=== PATIENT | female | born 1945 | race Caucasian/White ===

== ENCOUNTER 2017-12-16 12:15 | Outpatient (CLI) | payer MEDICARE, OTHER ==
--- NOTE | 2017-12-16 15:51 | MRI ---
MRI LUMBAR SPINE WITHOUT CONTRAST: 12/16/17 INDICATION: History of low back pain, left sided pain has worsened. COMPARISON: Prior exam dated 02/06/15. FINDINGS: The conus is seen to terminate at approximately L1. Advanced degenerative disease at L1-2, stable. Gr diana I anterolisthesis of L4 on L5 is stable. the visualized retroperitoneum and paravertebral soft ti ssues appear within normal limits. At the L4-5 level, there is severe bilateral facet joint degenerative change. The loss of disc space height in addition to facet hypertrophy induce stable mild left neural foraminal narrowing. At L4-5, there is facet hypertrophy with broad based disc osteophyte complex inducing mild central ca nal narrowing with mild bilateral neural foraminal narrowing which is stable. At L3-4, there is advanced left and mild right facet joint degenerative change and broad based bulge inducing mild bilateral neural foraminal narrowing, left greater than right which is stable to the pr ior exam. At L2-3, there is facet joint degenerative change with broad based bulge with mild bilateral neural f oraminal narrowing which is stable. At L1-2, there is a broad based bulge with facet joint degenerative change inducing mild bilateral ne ural foraminal narrowing which is stable. At T12-L1, there is no appreciable central canal or neural foraminal narrowing. IMPRESSION: Stable multilevel spondylosis of the lumbar spine with multilevel mild neural foraminal narrowing as detailed above. POS: [facility]
== END 2017-12-16 12:16 | disposition home or self-care (01) ==
LOC: SCSMRI 12:15
PROVIDERS: ATTEND Specialist
DX: M99.23 Subluxation stenosis of neural canal of lumbar region (principal); M47.896 Other spondylosis, lumbar region; M99.83 Other biomechanical lesions of lumbar region
CPT/HCPCS: 72148

== ENCOUNTER 2017-12-25 09:09 | Outpatient (CLI) | payer MEDICARE, OTHER ==
--- NOTE | 2017-12-25 11:09 | RAD ---
LUMBAR SPINE 4 VIEWS: HISTORY: Back pain. FINDINGS: On the AP projection, there is a slight curvature to the left with apex at L1-2. On the lateral view , the lumbar vertebrae maintain height. There is a grade I spondylolisthesis at L4-5 with mild disk narrowing seen at all levels of the lumbar spine. Facet hypertrophy is prominent at L3-4, L4-5, and L5-S1. The degree of listhesis at L4-5 does not appear to significantly changed with flexion or exte nsion. There are mild degenerative osteophytes at all levels of the lumbar spine. IMPRESSION: Mild to moderate degenerative changes of the lumbar spine with spondylolisthesis at L4-5 as described above. POS: [facility]
== END 2017-12-25 09:10 | disposition home or self-care (01) ==
LOC: SCSRAD 09:09
PROVIDERS: ATTEND Specialist
DX: M43.16 Spondylolisthesis, lumbar region (principal); M47.896 Other spondylosis, lumbar region
CPT/HCPCS: 72120

== ENCOUNTER 2018-01-22 10:14 | Outpatient (CLI) | payer MEDICARE, OTHER ==
--- NOTE | 2018-01-22 11:29 | RAD ---
PA AND LATERAL CHEST: Date: 01/22/18 HISTORY: Cough, bronchitis. COMPARISON: 09/28/13. FINDINGS: The lung [place] appear clear. No infiltrate identified. No evidence of effusion. Heart and mediastinu m unremarkable. Osseous structures unremarkable. IMPRESSION: No evidence of infiltrate. POS: [facility]
== END 2018-01-22 10:15 | disposition home or self-care (01) ==
LOC: SCSRAD 10:14
PROVIDERS: ATTEND Nurse Practitioner Family
DX: J40 Bronchitis, not specified as acute or chronic (principal)
CPT/HCPCS: 71046

== ENCOUNTER 2018-02-04 11:21 | Outpatient (CLI) | payer MEDICARE, OTHER | END 2018-02-04 11:22 | disposition home or self-care (01) | LOC: BICMAMMO 11:21 | PROVIDERS: ATTEND Family Medicine | DX: Z12.31 Encounter for screening mammogram for malignant neoplasm of breast (principal) | CPT/HCPCS: 77063; 77067 ==

== ENCOUNTER 2018-03-26 09:28 | Outpatient (CLI) | payer MEDICARE, OTHER ==
[2018-03-26 10:42] LABS: Hemoglobin 12.8 g/dL (12.0-16.0); Mean Corpuscular HGB CONC 33.3 g/dL (32.0-36.0); Mean Corpuscular Hemoglobin 29.5 pg (27.0-31.0); Mean Corpuscular Volume 88.6 fL (78.0-98.0); Mean Platelet Volume 9.5 fL (7.4-10.4); Platelet Count 152 thou/uL (130-400); RBC Distribution Width 12.3 % (11.5-14.5); Red Blood Cell (RBC) Count 4.33 mill/uL (4.20-5.40); White Blood Cell (WBC) Count 4.5 thou/uL (4.8-10.8)
[2018-03-26 10:50] LABS: INR-International Normal Ratio 0.9; PTT 26.8 SEC (22.9-36.1); Prothrombin Time 12.5 SEC (12.0-14.7)
[2018-03-26 11:06] LABS: Anion Gap 12 mmol/L (10-20); BUN (Urea Nitrogen) 19 mg/dL (9.8-20.1); Calc. Creatinine Clearance 0 mL/min (70-130); Calcium 9.5 mg/dL (7.8-10.44); Carbon Dioxide 28 mmol/L (23-31); Chloride 102 mmol/L (98-107); Estimated GFR-MDRD Greater than 90; Glucose 101 mg/dL (83-110); Sodium 138 mmol/L (136-145)
== END 2018-03-26 09:29 | disposition home or self-care (01) ==
LOC: LABBT 09:28
PROVIDERS: ATTEND Surgery
DX: Z01.812 Encounter for preprocedural laboratory examination (principal); M54.16 Radiculopathy, lumbar region; M43.16 Spondylolisthesis, lumbar region
CPT/HCPCS: 80048; 85027; 85610; 85730

== ENCOUNTER 2018-04-01 07:57 | Day surgery (SDC) | payer MEDICARE, OTHER ==
[2018-03-26 09:51] VITALS: BMI 35.2
[2018-04-01] MEDS ORDERED: CEFAZOLIN/Water 2 GM/20 ML SYRINGE ONE (08:50)
[2018-04-01] MEDS ORDERED: Fentanyl 100 MCG/2 ML VIAL ONE ×3 (10:25→13:36)
[2018-04-01] MEDS ORDERED: Sodium Chloride 0.9% 10 ML ONE (10:41)
[2018-04-01] MEDS ORDERED: Thrombin 5000 UNITS/5 ML VIAL ONE (10:41)
[2018-04-01] MEDS ORDERED: Bacitracin Zinc Ointment 30 gm TUBE ONE (12:17)
[2018-04-01] MEDS ORDERED: Promethazine HCl 25 MG/ML VIAL IM PRN (13:08)
[2018-04-01] MEDS ORDERED: Mag-Al 1200 mg/1200 mg/30 ML UDCUP PO PRN (13:08)
[2018-04-01] MEDS ORDERED: Milk Of Magnesia 30 ML UDCUP PO PRN (13:08)
[2018-04-01] MEDS ORDERED: traMADol HCl 50 MG TAB PO PRN (13:08)
[2018-04-01] MEDS ORDERED: Fleet Enema 133 ML BOT PR PRN (13:08)
[2018-04-01] MEDS ORDERED: Bisacodyl 10 MG SUPP PR PRN (13:08)
[2018-04-01] MEDS ORDERED: Acetaminophen 325 MG TAB PO PRN (13:08)
[2018-04-01] MEDS ORDERED: tiZANidine HCl 4 MG TAB PO PRN (13:08)
[2018-04-01] MEDS ORDERED: PROPOFOL 200 MG/20 ML VIAL ONE (14:33)
[2018-04-01] MEDS ORDERED: Ondansetron HCl/PF 4 MG/2 ML Vial ONE (14:33)
[2018-04-01] MEDS ORDERED: PHENYLEPHRINE-NS 100 MCG/ML 10 ML SYRINGE ONE (14:33)
[2018-04-01] MEDS ORDERED: Ketorolac Tromethamine 30 MG/ML VIAL ONE (14:33)
[2018-04-01] MEDS ORDERED: ePHEDrine/0.9% NaCl/PF SYRINGE 50 mg/10 ml ONE (14:33)
[2018-04-01] MEDS ORDERED: Glycopyrrolate 0.2 MG/ML 5 ML SYRINGE ONE ×2 (14:33)
[2018-04-01] MEDS ORDERED: Lidocaine 1% PF 5 ML VIAL ONE (14:33)
--- NOTE | 2018-04-01 15:04 | OP ---
LOCATION: OR 12. WOUND TYPE: Type 1 wound. SURGEON: Raj Menon M.D. ELECTRIC SYSTEM OPERATOR: Frandy Jenkins PA-C. PREPROCEDURE DIAGNOSES: L4-L5, L5-S1 stenosis with L5 radiculopathy and L4 and L5 spondylolisthesis. POSTPROCEDURE DIAGNOSES: L4-L5, L5-S1 stenosis with L5 radiculopathy and L4 and L5 spondylolisthesis . PROCEDURES PERFORMED: 1. L4-L5, L5-S1 laminectomies, partial facetectomies, foraminotomies over the L4, L5, S1 nerve roots . 2. In-situ fusion with posterior lateral approach L4-L5 with local bone autograft obtained from same incision, allograft. DESCRIPTION OF PROCEDURE: After informed consent was obtained from the patient, the patient brought to OR 12. Proper patient pause and identification was carried out. She was placed in excellent gene ral endotracheal anesthesia and positioned prone on the OR table. All appropriate points were padded . We identified the L4, L5 and S1 dorsal spines. A linear dayron was made over this region. This are a sterilely cleansed, prepared, and draped. Proper patient pause and identification was carried out. The wound was then opened with a combination of sharp, monopolar and blunt dissection. We proceede d to expose the L4, L5, S1 dorsal spines and lamina. Localization film confirmed our area of interes t. We then performed, L4, L5, S1 laminectomies, partial facetectomies, foraminotomies over the L4, L 5, S1 nerve roots. We then turned our attention to identify the posterior lateral trough that was de corticated over the ?L4-L5 segments that would allow for placement of local bone autograft obtained f rom same incision, allograft and this was done for in situ arthrodesis. We were pleased with our dec ompression and copious irrigation occurred throughout. There was no spinal fluid leak. The wound wa s then copiously irrigated and closed in anatomic layers following hemostasis and the placement of va ncomycin powder. The patient then emerged from anesthesia.
[2018-04-01] MEDS: Sodium Chloride 0.9% 1,000 ML IV SCH (15:58)
[2018-04-01] MEDS ORDERED: CEFAZOLIN/Water 2 GM/20 ML SYRINGE SLOW IVP SCH (17:00)
[2018-04-01] MEDS: CEFAZOLIN/Water 2 GM/20 ML SYRINGE SLOW IVP SCH (20:40)
[2018-04-01] MEDS ORDERED: Estrogens, Conjugated 0.3 MG TAB PO SCH (21:00)
[2018-04-02] MEDS: HYDROcodone/Acetaminophen 7.5/325 mg Tablet PO PRN ×2 (00:59→04:52)
[2018-04-02] MEDS: CEFAZOLIN/Water 2 GM/20 ML SYRINGE SLOW IVP SCH (04:54)
[2018-04-02] MEDS: Sodium Chloride 0.9% 1,000 ML IV SCH ×2 (04:55→11:04)
[2018-04-02] MEDS ORDERED: Levothyroxine Sodium 88 MCG TAB PO SCH (06:00)
[2018-04-02] MEDS ORDERED: Lisinopril/Hydrochlorothiazide 20/25 mg Tablet PO SCH (09:00)
--- NOTE | 2018-04-02 09:40 | PRG ---
DATE OF SERVICE: 04/02/2018 SUBJECTIVE: Ms. Drew is postoperative day 1 from L4-S1 laminectomy and in situ fusion of L4-L5 fo r spondylolisthesis. She states she is doing very well. She does have as expected postoperative farhana n in the low back; however, her leg pain has significantly improved. She is mobilized to the [facility] and is voiding on her own and is tolerating oral diet. She has a neurologically intact exam. We w ill plan on mobilizing her more in the [place] and should she would be ready to be dismiss later this mo rning or early this afternoon, I would be fine with that.
[2018-04-02] MEDS: Acetaminophen/Codeine 30-300mg Tablet PO PRN ×2 (09:48→14:05)
[2018-04-02 12:00] VITALS: BP 135/60; TEMP 98.2
== END 2018-04-02 14:20 | disposition home or self-care (01) ==
LOC: SDC 07:57 → 3SE 13:46 → SDC 04-02 14:20
PROVIDERS: ATTEND Surgery
PROC: 01NB0ZZ Release Lumbar Nerve, Open Approach (ICD-10-PCS; principal; 2018-04-01)
PROC: 0QB00ZZ Excision of Lumbar Vertebra, Open Approach (ICD-10-PCS; 2018-04-01)
PROC: 0QU007Z Supplement Lumbar Vertebra with Autologous Tissue Substitute, Open Approach (ICD-10-PCS; 2018-04-01)
DX: M48.061 Spinal stenosis, lumbar region without neurogenic claudication (principal); M48.07 Spinal stenosis, lumbosacral region; M43.16 Spondylolisthesis, lumbar region; Z88.2 Allergy status to sulfonamides; Z91.030 Bee allergy status; Z91.040 Latex allergy status
CPT/HCPCS: 76001; 96374; A4216; J1885; J2001; J2270; J2405; J2704; J3010; J3370; J3490

== ENCOUNTER 2018-04-05 18:01 | Emergency (ER) | payer MEDICARE, OTHER ==
[2018-04-05 18:40] LABS: Bilirubin Negative (Negative); Blood, Urine Trace (Negative); Clarity Clear (Clear); Glucose, Urine (Dipstick) Negative (Negative); Leukocyte Negative (Negative); Nitrite Negative (Negative); Protein, Urine (Dipstick) Negative (Neg-Trace); pH, Urine 5.5 (5.0-9.0)
[2018-04-05 18:42] LABS: #Basophils 0.1 thou/uL (0.0-0.2); #Eosinphils 0.2 thou/uL (0.0-0.7); #Lymphocytes 0.9 thou/uL (1.20-3.40); #Monocytes 0.5 thou/uL (0.11-0.59); %Lymphocytes 16.6 % (21.0-51.0); %Monocytes 8.5 % (0.0-10.0); Hemoglobin 11.3 g/dL (12.0-16.0); Mean Corpuscular HGB CONC 34.5 g/dL (32.0-36.0); Mean Platelet Volume 11.5 fL (7.4-10.4); Platelet Count 150 thou/uL (130-400); RBC Distribution Width 11.5 % (11.5-14.5); Red Blood Cell (RBC) Count 3.91 mill/uL (4.20-5.40); White Blood Cell (WBC) Count 5.6 thou/uL (4.8-10.8)
[2018-04-05 18:47] LABS: RBC/HPF 0-3 HPF (0-3); WBC/HPF None Seen HPF (0-3)
[2018-04-05 18:48] LABS: Bacteria/HPF Rare-Few HPF (None Seen); Squamous Epithelial 0-3 HPF (0-3)
[2018-04-05 18:53] LABS: Anion Gap 15 mmol/L (10-20); BUN (Urea Nitrogen) 16 mg/dL (9.8-20.1); Calc. Creatinine Clearance 0 mL/min (70-130); Calcium 9.4 mg/dL (7.8-10.44); Carbon Dioxide 27 mmol/L (23-31); Chloride 100 mmol/L (98-107); Estimated GFR-MDRD 90; Glucose 121 mg/dL (83-110); Potassium 3.7 mmol/L (3.5-5.1); Sodium 138 mmol/L (136-145)
--- NOTE | 2018-04-05 19:17 | RAD ---
PORTABLE AP CHEST X-RAY: 04/05/2018 HISTORY: Fever. COMPARISON: 09/28/2013 FINDINGS: The cardiac silhouette and the pulmonary vasculature are magnified by projection. The lungs are janet r. Vascular calcification is seen in the thoracic aorta. There is mild bilateral glenohumeral osteo arthropathy. There has been no significant interval change from prior exam. IMPRESSION: No acute cardiopulmonary process. POS: [facility]
== END 2018-04-05 18:58 | disposition home or self-care (01) ==
LOC: SCSER 18:01
DX: Z48.89 Encounter for other specified surgical aftercare (principal); E03.9 Hypothyroidism, unspecified; I10 Essential (primary) hypertension; F32.9 Major depressive disorder, single episode, unspecified; Z79.899 Other long term (current) drug therapy
CPT/HCPCS: 51701; 71045; 80048; 81003; 81015; 85025; A4353

== ENCOUNTER 2018-08-05 08:30 | Inpatient (IN) | payer MEDICARE, OTHER ==
[2018-08-16] MEDS ORDERED: CEFAZOLIN 2 GM/50 ML BAG ONE (06:04)
[2018-08-16] MEDS ORDERED: Sodium Chloride 0.9% 100 ML ONE (06:04)
[2018-08-16] MEDS ORDERED: Tranexamic Acid 1,000 MG/10 ML VIAL ONE ×2 (06:04→10:18)
[2018-08-16] MEDS ORDERED: Vancomycin HCl 1.5 GM in Sodium Chloride 0.9% 250 ML 300 ML IVPB SCH ×2 (06:15→18:00)
[2018-08-16] MEDS ORDERED: Midazolam HCl 2 mg/2 ml Vial ONE (06:20)
[2018-08-16] MEDS ORDERED: Fentanyl 100 MCG/2 ML VIAL ONE ×4 (06:21→10:47)
[2018-08-16] MEDS ORDERED: Bupivacaine HCl 0.5%/Epinephrine 1:200,000/PF 30 ml Vial ONE (07:09)
[2018-08-16] MEDS ORDERED: Promethazine HCl 25 MG/ML VIAL IM PRN ×2 (07:27→07:30)
[2018-08-16] MEDS ORDERED: Ondansetron HCl/PF 4 MG/2 ML Vial IVP PRN (07:27)
[2018-08-16] MEDS ORDERED: Promethazine HCl 25 MG/ML VIAL SLOW IVP PRN ×2 (07:27→11:13)
[2018-08-16] MEDS ORDERED: fentaNYL Citrate/PF 1,250 MCG, Bupivacaine 25 ML in Sodium Chloride 0.9% 250 ML 200 ML EPIDURAL SCH (07:30)
[2018-08-16] MEDS ORDERED: Bupivacaine 0.25% 10 ML VIAL EPIDURAL PRN (07:30)
[2018-08-16] MEDS ORDERED: Zolpidem Tartrate 5 MG TAB PO PRN ×2 (07:30→11:13)
[2018-08-16] MEDS ORDERED: traMADol HCl 50 MG TAB PO PRN ×2 (07:30→11:13)
[2018-08-16] MEDS ORDERED: Naloxone HCl 0.4 mg/ml Vial IV PRN (07:30)
[2018-08-16] MEDS ORDERED: Ondansetron PF 4 MG/2 ML Vial IVP PRN ×2 (07:30→11:13)
[2018-08-16] MEDS ORDERED: diphenhydrAMINE 50 MG/ML VIAL IVP PRN (07:30)
[2018-08-16] MEDS ORDERED: Promethazine HCl 25 MG SUPP PR PRN (07:30)
[2018-08-16] MEDS ORDERED: Naloxone HCl 0.4 mg/ml Vial IVP PRN (07:30)
[2018-08-16] MEDS ORDERED: diphenhydrAMINE 50 MG/ML VIAL IM PRN (07:30)
[2018-08-16] MEDS ORDERED: Hydrocerin (Eucerin) Cream 120 gm Jar TOP PRN (07:30)
[2018-08-16] MEDS ORDERED: HYDROcodone/Acetaminophen 5/325 mg Tablet PO PRN ×2 (07:30)
[2018-08-16] MEDS ORDERED: Tranexamic Acid 1,000 MG in Sodium Chloride 0.9% 100 ML IVPB SCH ×2 (10:00→11:13)
[2018-08-16] MEDS ORDERED: Fentanyl/Bupivacaine 100 ML EPIDURAL ONE (10:06)
[2018-08-16] MEDS ORDERED: HYDROcodone/Acetaminophen 10/325 mg Tablet PO PRN ×2 (11:13)
[2018-08-16] MEDS ORDERED: Fentanyl 100 MCG/2 ML VIAL SLOW IVP PRN ×2 (11:13)
[2018-08-16] MEDS ORDERED: diphenhydrAMINE 25 MG CAP PO PRN (11:13)
[2018-08-16] MEDS ORDERED: Fluticasone Propionate Nasal Spray 16 gm Bottle NASAL PRN (11:13)
[2018-08-16 11:33] VITALS: BMI 38.9
--- NOTE | 2018-08-16 11:42 | RAD ---
LEFT HIP TWO VIEWS: History: Post op. FINDINGS: Portable films show total hip prosthesis which appears to be in satisfactory position. No signs of fr acture. IMPRESSION: Placement of total hip prosthesis. POS: [facility]
--- NOTE | 2018-08-16 12:11 | OP ---
DATE OF PROCEDURE: 08/16/2018 SURGEON: Dr. Beau Mejia. PHYSICIST ASTROPHYSICS: Charo Galicia PA-C. ANESTHESIA: General plus epidural. PREOPERATIVE DIAGNOSIS: Degenerative arthritis, left hip. POSTOPERATIVE DIAGNOSIS: Degenerative arthritis, left hip. PROCEDURES PERFORMED: Left total hip replacement with uncemented Jessica Trident PSL acetabular component 52 mm with X3 polyethylene insert and uncemented Jessica Accolade femoral stem 4.5 with 132 degree neck angle trunnion and 36 mm standard neck length metal femoral head. OPERATIVE FINDINGS: There was marked degenerative arthritis of the hip. There was also chronic rupture of the abductors with a large bald greater trochanter with traction of the abductors. I did try to be repair these as much as possible, but it was quite friable and a complete repair cannot be accomplished. NARRATIVE REPORT: After satisfactory anesthesia was induced in supine position , the patient was placed in lateral decubitus position and this position was held with hip positioning device. Sequential compression device was placed on the nonoperative leg throughout the procedure. The patient's left hip was then prepped and draped in a routine sterile fashion. The hip was approached through a lateral curvilinear incision center over the greater trochanter and carried down to subcutaneous tissues. Bleeding points controlled with Bovie cautery. IT band and gluteal fascia were split in line with the skin incision. Immediately upon entering the IT band, the above findings were noted. The abductors were further reflected and retracted medially along with a portion of vastus lateralis using the Bovie cautery and partial anterior capsulectomy was performed at the hip. The hip was dislocated anteriorly. There was marked degenerative arthritis of the hip. The femoral neck was osteotomized using a trial prosthesis as a guide and using oscillating saw. The acetabulum was exposed and cleaned of all soft tissue and debris and then reamed down to bleeding subchondral bone to a total of 52 mm with the power reamers. It was felt that a 52 mm Jessica Trident PSL outer shell could be placed in a press fit fashion. The permanent outer shell was then hammered in position. There was good fit and stability of the shell and the permanent X3 polyethylene insert was snapped into position. The proximal femur was then exposed and opened with a box osteotome and then rasped in sequence to accept a 4.5 Accolade femoral rasp. Trial reduction with 132 degree neck angle trunnion and the standard neck length 36 mm trial head gave appropriate size, fit, and stability. Hip was again dislocated anteriorly and the trial components was removed. The permanent Accolade 4.5 femoral component was then hammered in position. There was again good fit and stability of the component. The permanent standard neck length 36 mm metal head was then placed on the trunnion. The hip again reduced and found to be stable. The hip was copiously irrigated with pulsatile lavage. The abductors were repaired using two double loaded suture anchors with heavy FiberWire suture in the greater trochanter and after freshening the greater trochanter with a curet for bleeding bed. It was reinforced with several interrupted #2 Vicryl sutures. The IT band and gluteal fascia was closed with interrupted #2 Vicryl and a running #2 Quill. Subcutaneous tissues were closed with interrupted #2 Vicryl and a running 0 Quill suture. Skin was closed with running subcuticular 3-0 Monoderm and SurgiSeal skin adhesive. A sterile dressing was applied. The patient turned to supine position. A pillow was placed between her legs and sequential compression device was placed on her operated leg. She was awakened and taken to recovery room in stable condition. There were no apparent intraoperative complications. The estimated blood loss was 300 mL. MTDD
[2018-08-16] MEDS: diphenhydrAMINE 25 MG CAP PO PRN ×3 (12:13→20:08)
[2018-08-16] MEDS ORDERED: Lisinopril/Hydrochlorothiazide 20/25 mg Tablet PO SCH (12:15)
[2018-08-16] MEDS ORDERED: Levothyroxine Sodium 88 MCG TAB PO SCH (12:15)
[2018-08-16] MEDS ORDERED: Multivitamin W/ Minerals 1 TAB PO SCH (12:15)
[2018-08-16] MEDS ORDERED: Aspirin 81 mg Enteric Coated Tablet PO SCH (12:15)
[2018-08-16] MEDS ORDERED: Ferrous Gluconate 324 MG TAB PO SCH (12:15)
[2018-08-16] MEDS ORDERED: Senokot S 8.6-50 MG TAB PO SCH (12:15)
[2018-08-16] MEDS: CEFAZOLIN 2 GM/50 ML BAG IVPB SCH ×2 (13:35→21:13)
[2018-08-16] MEDS: Sodium Chloride 0.9% 1,000 ML IV SCH ×2 (13:36→20:19)
[2018-08-16] MEDS: Ketorolac Tromethamine 30 MG/ML VIAL IVP SCH ×4 (13:38→21:12)
[2018-08-16] MEDS ORDERED: PHENYLEPHRINE-NS 100 MCG/ML 10 ML SYRINGE ONE (13:54)
[2018-08-16] MEDS ORDERED: PROPOFOL 200 MG/20 ML VIAL ONE (13:54)
[2018-08-16] MEDS ORDERED: Ondansetron PF 4 MG/2 ML Vial ONE (13:54)
[2018-08-16] MEDS ORDERED: Lidocaine 1% PF 5 ML VIAL ONE (13:54)
[2018-08-16] MEDS ORDERED: ePHEDrine/0.9% NaCl/PF SYRINGE 50 mg/10 ml ONE (13:54)
--- NOTE | 2018-08-16 15:35 | PDOC.PN ---
- Subjective Encounter Start Date: 08/16/18 Encounter Start Time: 15:33 Pt seen for management of medical comorbidities, including hypertension. Denies chest pain, shortness of breath, fevers or chills. - Objective MAR Reviewed: Yes Vital Signs & Weight: Vital Signs (12 hours) Temp Pulse Resp BP BP Pulse Ox 08/16/18 15:30 97.8 F 60 18 97/58 L 97 08/16/18 15:25 97.6 F 62 16 105/67 98 08/16/18 15:05 62 08/16/18 11:20 97.9 F 62 16 144/82 H 98 Weight Weight 241 lb Additional Labs: Labs reviewed by me Phys Exam - Physical Examination Obese HEENT: moist MMs Neck: supple Respiratory: clear to auscultation bilateral Cardiovascular: RRR Gastrointestinal: soft s/p L hip surgery Psychiatric: normal affect Skin: no rash Dx/Plan (1) HTN (hypertension) Code(s): I10 - ESSENTIAL (PRIMARY) HYPERTENSION Status: Chronic Comment: home meds resumed, monitor vital signs and titrate antihypertensives as needed. Add PRN IV hydralazine for blood pressure spikes. (2) Hypothyroidism Code(s): E03.9 - HYPOTHYROIDISM, UNSPECIFIED Status: Acute Comment: continue synthroid (3) Arthritis Code(s): M19.90 - UNSPECIFIED OSTEOARTHRITIS, UNSPECIFIED SITE Status: Chronic Comment: s/p L hip surgery. Pain management and DVT prophylaxis per primary service. - Plan * . Review of Systems - Review of Systems Respiratory: negative: Cough, Shortness of Breath, SOB with Excertion, Pleuritic Pain, Wheezing Cardiovascular: negative: chest pain, palpitations, orthopnea, paroxysmal nocturnal dyspnea, edema, light headedness - Medications/Allergies Allergies/Adverse Reactions: Allergies Allergy/AdvReac Type Severity Reaction Status Date / Time adhesive Allergy Verified 08/05/18 09:16 bee venom protein (honey bee) Allergy throat Verified 08/05/18 09:16 closes gluten Allergy Verified 08/05/18 09:16 Sulfa (Sulfonamide Allergy Rash Verified 08/05/18 09:16 Antibiotics) sulfamethoxazole Allergy Verified 08/05/18 09:16 [From Bactrim] trimethoprim [From Bactrim] Allergy Verified 08/05/18 09:16 soy sauce Allergy throat Uncoded 08/05/18 09:16 closes Medications: Current Medications Acetaminophen (Tylenol) 650 mg PO Q4H PRN PRN Reason: HAWKINS/ T > 101F; Mild Pain (1-3) Hydrocodone Bitart/Acetaminophen ([place] 10/325) 1 tab PO Q4H PRN PRN Reason: Moderate Pain (4-6) Hydrocodone Bitart/Acetaminophen ([place] 10/325) 2 tab PO Q4H PRN PRN Reason: Severe Pain (7-10) Aspirin (Ecotrin) 81 mg PO BID [facility] Bupivacaine HCl (Marcaine) 5 ml EPIDURAL ONE PRN PRN Reason: UNCONTROLLED PAIN Stop: 08/16/18 23:00 Cefazolin Sodium/Dextrose (Ancef 2 Gm/50 Ml) 2 gm IVPB Q8HR [facility] Stop: 08/16/18 22:01 Last Admin: 08/16/18 13:35 Dose: 2 gm Diphenhydramine HCl (Benadryl) 25 mg PO Q3H PRN PRN Reason: Itching Last Admin: 08/16/18 15:06 Dose: 25 mg Diphenhydramine HCl (Benadryl) 25 mg IM Q3H PRN PRN Reason: Itching Diphenhydramine HCl (Benadryl) 25 mg IVP Q3H PRN PRN Reason: Itching Diphenhydramine HCl (Benadryl) 25 mg PO Q6H PRN PRN Reason: Itching Emollient Cream (Hydrocerin Cream) 0 gm TOP PRN PRN PRN Reason: Itching Estrogens Conjugated (Premarin) 0.3 mg PO HS [facility] Famotidine (Pepcid) 40 mg PO HS [facility] Fentanyl (Sublimaze) 50 mcg SLOW IVP Q30MIN PRN PRN Reason: Moderate Pain (4-6) Fentanyl (Sublimaze) 100 mcg SLOW IVP Q1H PRN PRN Reason: Severe Pain (7-10) Ferrous Gluconate (Fergon) 324 mg PO BID [facility] Fluticasone Propionate (Flonase Nasal [place]) 0 gm NASAL DAILY PRN PRN Reason: Congestion Lisinopril/HCTZ (Prinizide 20-25) 1 tab PO QAM [facility] Fentanyl Citrate (Fentanyl/Bupivacaine) 100 mls @ 6 mls/hr EPIDURAL INF [facility] Sodium Chloride (Normal Saline 0.9%) 1,000 mls @ 100 mls/hr IV .Q10H [facility] Last Admin: 08/16/18 13:36 Dose: 1,000 mls Vancomycin HCl 1.5 gm/ Sodium (Chloride) 300 mls @ 200 mls/hr IVPB 1800 [facility] Stop: 08/16/18 23:59 Iron/Minerals/Multivitamins (Theragran M) 1 tab PO DAILY [facility] Ketorolac Tromethamine (Toradol) 15 mg IVP Q6HR [facility] Stop: 08/18/18 06:01 Last Admin: 08/16/18 13:43 Dose: Not Given Ketorolac Tromethamine (Toradol) 15 mg IVP Q8HR [facility] Stop: 08/18/18 14:01 Last Admin: 08/16/18 13:38 Dose: 15 mg Levothyroxine Sodium (Synthroid) 88 mcg PO 0600 [facility] Miscellaneous Information (Communication Order-Pharmacy) 1 each FS ASDIR [facility] Naloxone HCl (Narcan) 0.2 mg IV Q5MIN PRN PRN Reason: RR <=8 OR OBTUNDED/UNAROUSABLE Naloxone HCl (Narcan) 0.1 mg IVP Q15MIN PRN PRN Reason: URINARY RETENTION (Pantonase 2 [place]) 2 spray INH HS [facility] Ondansetron HCl (Zofran) 4 mg IVP Q6H PRN PRN Reason: Nausea/Vomiting Pantoprazole Sodium (Protonix) 40 mg PO QAM [facility] Promethazine HCl (Phenergan) 12.5 mg IM Q4H PRN PRN Reason: Nausea Promethazine HCl (Phenergan Suppository) 25 mg [place] Q4H PRN PRN Reason: Nausea/Vomiting Promethazine HCl (Phenergan) 12.5 mg SLOW IVP Q4H PRN PRN Reason: Nausea/Vomiting Senna/Docusate Sodium (Senokot S) 2 tab PO BID [facility] Sertraline HCl (Zoloft) 150 mg PO HS [facility] Sodium Chloride (Flush - Normal Saline) 10 ml IVF PRN PRN PRN Reason: Saline Flush Tramadol HCl (Ultram) 50 mg PO Q6H PRN PRN Reason: Mild Pain 1-3 Tramadol HCl (Ultram) 100 mg PO Q6H PRN PRN Reason: Mild Pain (1-3) Zolpidem Tartrate (Ambien) 5 mg PO HSPRN PRN PRN Reason: Insomnia
[2018-08-16] MEDS ORDERED: hydrALAZINE 20 MG/ML VIAL SLOW IVP PRN (15:38)
[2018-08-16] MEDS: Senokot S 8.6-50 MG TAB PO SCH (20:09)
[2018-08-16] MEDS: Aspirin 81 mg Enteric Coated Tablet PO SCH (20:10)
[2018-08-16] MEDS: Famotidine 20 MG TAB PO SCH (20:10)
[2018-08-16] MEDS: traMADol HCl 50 MG TAB PO PRN (20:10)
[2018-08-16] MEDS: Ferrous Gluconate 324 MG TAB PO SCH (20:10)
[2018-08-16] MEDS: Estrogens, Conjugated 0.3 MG TAB PO SCH (20:23)
[2018-08-16] MEDS ORDERED: [UNRECOGNIZED DRUG - OTHER] INH SCH (21:00)
[2018-08-16] MEDS: Acetaminophen 325 MG TAB PO PRN (21:55)
[2018-08-17] MEDS: Ketorolac Tromethamine 30 MG/ML VIAL IVP SCH ×6 (01:00→23:52)
[2018-08-17] MEDS: Fentanyl/Bupivacaine 100 ML EPIDURAL SCH ×2 (02:49→16:19)
[2018-08-17] MEDS: Levothyroxine Sodium 88 MCG TAB PO SCH (05:04)
[2018-08-17] MEDS: Sodium Chloride 0.9% 1,000 ML IV SCH ×2 (05:21→18:08)
[2018-08-17 06:45] LABS: Hemoglobin 9.9 g/dL (12.0-16.0); Mean Corpuscular HGB CONC 33.5 g/dL (32.0-36.0); Mean Corpuscular Hemoglobin 28.9 pg (27.0-31.0); Mean Corpuscular Volume 86.2 fL (78.0-98.0); Mean Platelet Volume 10.7 fL (7.4-10.4); Platelet Count 107 thou/uL (130-400); RBC Distribution Width 13.8 % (11.5-14.5); Red Blood Cell (RBC) Count 3.41 mill/uL (4.20-5.40)
[2018-08-17] MEDS ORDERED: Bupivacaine 0.25% 10 ML VIAL EPIDURAL PRN (07:05)
[2018-08-17] MEDS ORDERED: Zolpidem Tartrate 5 MG TAB PO PRN (07:05)
--- NOTE | 2018-08-17 07:21 | HP ---
DATE OF ADMISSION: 08/16/2018 HISTORY OF PRESENT ILLNESS: The patient is a 72-year-old female with a several year history of probl ems with her left hip, which have become much worse over the past several months. She has had progre ssive pain despite rest, restriction of activities, anti-inflammatory medications and use of a cane. The pain is now interfering with day-to-day activities including walking, getting dressed and sleepi ng. PAST MEDICAL HISTORY: The patient has had previous right total knee replacement by Dr. Kohli in 10 03. She has had back surgery with Dr. Menon in March of this year, which helped her back pain, but h as not helped her hip pain. She has a history of hypertension, depression and insomnia. CURRENT MEDICATIONS: Include Premarin, lisinopril, hydrochlorothiazide, Zoloft, pantoprazole, albute rol inhaler p.r.n., levothyroxine. ALLERGIES: She is allergic to SULFA, BACTRIM, GLUTEN and INSECTS. FAMILY HISTORY: Otherwise unremarkable. SOCIAL HISTORY: Otherwise unremarkable. REVIEW OF SYSTEMS: Otherwise unremarkable. PHYSICAL EXAMINATION: GENERAL: Reveals an elderly healthy female. HEENT: Unremarkable. NECK: Supple. CHEST: Clear. HEART: Regular rate and rhythm. ABDOMEN: Soft, nontender. PELVIC/RECTAL/BREAST: Exams are deferred. EXTREMITIES: Pertinent findings of the left hip. Her leg lengths are equal. There is tenderness in the greater trochanter, sciatic notch and over the anterior hip. There is a left antalgic gait with a cane. There is decreased range of motion of the left hip and groin pain with internal rotation of the hip. Neurovascular exam is intact. Straight leg raising is negative. LABORATORY AND X-RAY FINDINGS: X-rays of the left hip reveal bone on bone collapse of the left hip w ith minimal joint space remaining and definite progression from previous x-rays. IMPRESSION: Degenerative arthritis, left hip. PLAN: Left total hip replacement. The nature of the surgery, length of recovery and potential compl ications such as infection, loss of motion, incomplete relief, neurovascular injury, thromboembolic p henomenon, leg length discrepancy, possible transfusion and need for revision have been discussed in detail.
[2018-08-17] MEDS: traMADol HCl 50 MG TAB PO PRN (08:07)
[2018-08-17] MEDS: Senokot S 8.6-50 MG TAB PO SCH ×2 (08:09→21:26)
[2018-08-17] MEDS: Aspirin 81 mg Enteric Coated Tablet PO SCH ×2 (08:12→21:26)
[2018-08-17] MEDS: Multivitamin W/ Minerals 1 TAB PO SCH (08:12)
[2018-08-17] MEDS: Ferrous Gluconate 324 MG TAB PO SCH ×2 (08:12→21:27)
[2018-08-17] MEDS ORDERED: Lisinopril/Hydrochlorothiazide 20/25 mg Tablet PO SCH (09:00)
[2018-08-17] MEDS ORDERED: Diabetic Tussin 200 MG/10 ML UDCUP PO PRN (09:12)
[2018-08-17] MEDS ORDERED: hydrALAZINE 20 MG/ML VIAL SLOW IVP PRN (09:12)
[2018-08-17] MEDS ORDERED: HYDROcodone/Acetaminophen 5/325 mg Tablet PO PRN (11:34)
[2018-08-17] MEDS: Estrogens, Conjugated 0.3 MG TAB PO SCH (21:26)
[2018-08-17] MEDS: Famotidine 20 MG TAB PO SCH (21:27)
[2018-08-18] MEDS: Sodium Chloride 0.9% 1,000 ML IV SCH ×3 (00:42→21:42)
[2018-08-18] MEDS: Ketorolac Tromethamine 30 MG/ML VIAL IVP SCH (05:32)
[2018-08-18] MEDS: Levothyroxine Sodium 88 MCG TAB PO SCH (05:32)
[2018-08-18] MEDS: Fentanyl/Bupivacaine 100 ML EPIDURAL SCH ×2 (05:36→18:00)
[2018-08-18 05:49] LABS: Hemoglobin 9.6 g/dL (12.0-16.0); Mean Corpuscular HGB CONC 33.5 g/dL (32.0-36.0); Mean Corpuscular Volume 86.5 fL (78.0-98.0); Mean Platelet Volume 10.2 fL (7.4-10.4); Platelet Count 106 thou/uL (130-400); RBC Distribution Width 13.8 % (11.5-14.5); Red Blood Cell (RBC) Count 3.31 mill/uL (4.20-5.40); White Blood Cell (WBC) Count 5.3 thou/uL (4.8-10.8)
[2018-08-18] MEDS: Senokot S 8.6-50 MG TAB PO SCH ×2 (08:04→21:18)
[2018-08-18] MEDS: Ferrous Gluconate 324 MG TAB PO SCH ×2 (08:05→21:18)
[2018-08-18] MEDS: Aspirin 81 mg Enteric Coated Tablet PO SCH ×2 (08:05→21:19)
[2018-08-18] MEDS: Multivitamin W/ Minerals 1 TAB PO SCH (08:06)
[2018-08-18] MEDS: Acetaminophen 325 MG TAB PO PRN ×2 (08:06→15:26)
[2018-08-18] MEDS: Lisinopril/Hydrochlorothiazide 20/25 mg Tablet PO SCH (08:09)
[2018-08-18] MEDS ORDERED: Polyethylene Glycol 3350 17 GM Packet PO PRN (11:17)
--- NOTE | 2018-08-18 14:34 | PDOC.PN ---
- Subjective Encounter Start Date: 08/18/18 Encounter Start Time: 10:30 Patient seen and examined for med mngt. No new complaints. No overnight events - Objective MAR Reviewed: Yes Vital Signs & Weight: Vital Signs (12 hours) Temp Pulse Resp BP BP Pulse Ox 08/18/18 11:32 98.2 F 74 20 98/64 95 08/18/18 08:09 87 08/18/18 08:00 98.4 F 80 18 103/62 93 L 08/18/18 04:00 98 F 87 16 116/63 95 Weight Admit Weight 241 lb Weight 241 lb I&O: 08/17/18 08/18/18 08/19/18 06:59 06:59 06:59 Intake Total 2883.0 1921.0 Output Total 1400 1850 Balance 1483.0 71.0 Result Diagrams: 08/18/18 05:03 EKG Reviewed by me: Yes (SR) Phys Exam - Physical Examination Constitutional: NAD Respiratory: no wheezing, no rhonchi Cardiovascular: RRR, no rub Gastrointestinal: soft, non-tender, positive bowel sounds Musculoskeletal: no edema Neurological: moves all 4 limbs Dx/Plan - Plan DVT proph w/SCDs 1. HTN - BP on lower side Cont Lisinopril-HCTZ with holding parameters 2. Hypothyroidism Cont Levothyroxine 3. Obesity BMI BMI 38.9 4. CKD 2 5. HLD 6. Depression Cont Zoloft 7. GERD Cont PPI Laboratory Tests 02/18/18 02/18/18 08/05/18 08:32 08:32 09:10 Creatinine 0.66 Estimated GFR (MDRD) 88 Cholesterol 258 H LDL Cholesterol, Calc 163 HDL Cholesterol 72 TSH 3rd Generation 1.3455 Review of Systems - Review of Systems Respiratory: negative: Cough, Dry, Shortness of Breath, Hemoptysis, SOB with Excertion, Pleuritic Pain, Sputum, Wheezing Cardiovascular: negative: chest pain, palpitations, orthopnea, paroxysmal nocturnal dyspnea, edema, light headedness, other Gastrointestinal: Constipation. negative: Nausea, Vomiting, Abdominal Pain, Diarrhea, Melena, Hematochezia, Other - Medications/Allergies Allergies/Adverse Reactions: Allergies Allergy/AdvReac Type Severity Reaction Status Date / Time adhesive Allergy Verified 08/05/18 09:16 bee venom protein (honey bee) Allergy throat Verified 08/05/18 09:16 closes Sulfa (Sulfonamide Allergy Rash Verified 08/05/18 09:16 Antibiotics) sulfamethoxazole Allergy Verified 08/05/18 09:16 [From Bactrim] trimethoprim [From Bactrim] Allergy Verified 08/05/18 09:16 soy sauce Allergy throat Uncoded 08/05/18 09:16 closes Medications: Current Medications Acetaminophen (Tylenol) 650 mg PO Q4H PRN PRN Reason: HAWKINS/ T > 101F; Mild Pain (1-3) Last Admin: 08/18/18 08:06 Dose: 650 mg Hydrocodone Bitart/Acetaminophen ([place] 5/325) 1 tab PO Q4H PRN PRN Reason: Mild Pain 1-3 Hydrocodone Bitart/Acetaminophen ([place] 5/325) 2 tab PO Q4H PRN PRN Reason: For Moderate Pain 4-6 Aspirin (Ecotrin) 81 mg PO BID [facility] Last Admin: 08/18/18 08:05 Dose: 81 mg Bupivacaine HCl (Marcaine) 5 ml EPIDURAL ONE PRN PRN Reason: UNCONTROLLED PAIN Stop: 08/19/18 07:06 Diphenhydramine HCl (Benadryl) 25 mg PO Q3H PRN PRN Reason: Itching Last Admin: 08/16/18 20:08 Dose: 25 mg Diphenhydramine HCl (Benadryl) 25 mg IM Q3H PRN PRN Reason: Itching Diphenhydramine HCl (Benadryl) 25 mg IVP Q3H PRN PRN Reason: Itching Emollient Cream (Hydrocerin Cream) 0 gm TOP PRN PRN PRN Reason: Itching Estrogens Conjugated (Premarin) 0.3 mg PO [facility] Last Admin: 08/17/18 21:26 Dose: 0.3 mg Famotidine (Pepcid) 40 mg PO [facility] Last Admin: 08/17/18 21:27 Dose: 40 mg Ferrous Gluconate (Fergon) 324 mg PO BID [facility] Last Admin: 08/18/18 08:05 Dose: 324 mg Fluticasone Propionate (Flonase Nasal [place]) 0 gm NASAL DAILY PRN PRN Reason: Congestion Guaifenesin (Robitussin Sf) 200 mg PO Q4H PRN PRN Reason: Cough Lisinopril/HCTZ (Prinizide 20-25) 1 tab PO QAM [facility] Last Admin: 08/18/18 08:09 Dose: Not Given Hydralazine HCl (Apresoline) 10 mg SLOW IVP Q6H PRN PRN Reason: SBP Greater Than 170 Fentanyl Citrate (Fentanyl/Bupivacaine) 100 mls @ 8 mls/hr EPIDURAL INF [facility] Last Admin: 08/18/18 05:36 Dose: 100 mls Sodium Chloride (Normal Saline 0.9%) 1,000 mls @ 100 mls/hr IV .Q10H [facility] Last Admin: 08/18/18 11:48 Dose: Not Given Iron/Minerals/Multivitamins (Theragran M) 1 tab PO DAILY [facility] Last Admin: 08/18/18 08:06 Dose: 1 tab Levothyroxine Sodium (Synthroid) 88 mcg PO 0600 [facility] Last Admin: 08/18/18 05:32 Dose: 88 mcg Miscellaneous Information (Communication Order-Pharmacy) 1 each FS [facility] Naloxone HCl (Narcan) 0.2 mg IV Q5MIN PRN PRN Reason: RR <=8 OR OBTUNDED/UNAROUSABLE Naloxone HCl (Narcan) 0.1 mg IVP Q15MIN PRN PRN Reason: URINARY RETENTION (Pantonase 2 [place]) 2 spray INH [facility] Pantoprazole Sodium (Protonix) 40 mg PO QAM [facility] Last Admin: 08/18/18 08:04 Dose: 40 mg Polyethylene Glycol (Miralax) 17 gm PO DAILY PRN PRN Reason: Constipation Promethazine HCl (Phenergan) 12.5 mg IM Q4H PRN PRN Reason: Nausea Promethazine HCl (Phenergan Suppository) 25 mg [place] Q4H PRN PRN Reason: Nausea/Vomiting Senna/Docusate Sodium (Senokot S) 2 tab PO BID [facility] Last Admin: 08/18/18 08:04 Dose: 2 tab Sertraline HCl (Zoloft) 150 mg PO HS [facility] Last Admin: 08/17/18 21:25 Dose: 150 mg Sodium Chloride (Flush - Normal Saline) 10 ml IVF PRN PRN PRN Reason: Saline Flush Last Admin: 08/18/18 05:32 Dose: 10 ml Tramadol HCl (Ultram) 50 mg PO Q6H PRN PRN Reason: Mild Pain 1-3 Last Admin: 08/17/18 08:07 Dose: 50 mg Zolpidem Tartrate (Ambien) 5 mg PO HSPRN PRN PRN Reason: Insomnia
[2018-08-18] MEDS: Famotidine 20 MG TAB PO SCH (21:18)
[2018-08-18] MEDS: Estrogens, Conjugated 0.3 MG TAB PO SCH (21:20)
[2018-08-18] MEDS: HYDROcodone/Acetaminophen 5/325 mg Tablet PO PRN (21:24)
[2018-08-19] MEDS: HYDROcodone/Acetaminophen 5/325 mg Tablet PO PRN ×2 (03:45→11:15)
[2018-08-19] MEDS: Levothyroxine Sodium 88 MCG TAB PO SCH (06:27)
[2018-08-19] MEDS: Fentanyl/Bupivacaine 100 ML EPIDURAL SCH (07:03)
[2018-08-19] MEDS: Aspirin 81 mg Enteric Coated Tablet PO SCH (08:15)
[2018-08-19] MEDS: Multivitamin W/ Minerals 1 TAB PO SCH (08:15)
[2018-08-19] MEDS: Ferrous Gluconate 324 MG TAB PO SCH (08:15)
[2018-08-19] MEDS: Senokot S 8.6-50 MG TAB PO SCH (08:15)
[2018-08-19 11:26] VITALS: BP 123/76; TEMP 97.6
[2018-08-19] MEDS: Lisinopril/Hydrochlorothiazide 20/25 mg Tablet PO SCH (13:41)
[2018-08-19] MEDS: traMADol HCl 50 MG TAB PO PRN (13:41)
--- NOTE | 2018-08-20 14:21 | DIS ---
DATE OF ADMISSION: 08/16/2018 DATE OF DISCHARGE: 08/19/2018 PREOPERATIVE DIAGNOSIS: Left hip degenerative joint disease/osteoarthritis. POSTOPERATIVE DIAGNOSIS: Left hip degenerative joint disease/osteoarthritis. PROCEDURE PERFORMED: The patient underwent a left total hip replacement. HOSPITAL COURSE: Hospital stay was unremarkable. The patient was transferred to [address], where she worked with staff, physical therapy, occupational therapy, and progressed quite well. By postoperative day #3, she was ready to discharge home. DISCHARGE CONDITION: Good/stable. DISPOSITION: To a fpc facility for further PT/OT. FOLLOWUP: Would be in 2 to 4 weeks or sooner if there are any problems or concerns. DISCHARGE MEDICATIONS: Given with the usage instructions. Job ID: [id number]
== END 2018-08-19 14:32 | DRG 470 ==
LOC: SURG A 08-16 05:50 → SJJU 08-16 10:32
PROVIDERS: ADMIT Orthopaedic Surgery; ATTEND Orthopaedic Surgery
PROC: 0SRB02A Replacement of Left Hip Joint with Metal on Polyethylene Synthetic Substitute, Uncemented, Open Approach (ICD-10-PCS; principal; 2018-08-16)
DX: M16.12 Unilateral primary osteoarthritis, left hip (principal); F32.9 Major depressive disorder, single episode, unspecified; I12.9 Hypertensive chronic kidney disease with stage 1 through stage 4 chronic kidney disease, or unspecified chronic kidney disease; E03.9 Hypothyroidism, unspecified; N18.2 Chronic kidney disease, stage 2 (mild); E66.9 Obesity, unspecified; G47.00 Insomnia, unspecified; K21.9 Gastro-esophageal reflux disease without esophagitis; Z68.38 Body mass index [BMI] 38.0-38.9, adult; Z87.891 Personal history of nicotine dependence; Z88.2 Allergy status to sulfonamides; Z91.030 Bee allergy status; Z91.018 Allergy to other foods; Z79.899 Other long term (current) drug therapy; Z96.651 Presence of right artificial knee joint
CPT/HCPCS: 36415; 85027; C1776; G8978-GP-CJ; G8979-GP-CI; G8987-GO-CK; G8988-GO-CJ; J0670; J1200; J1885; J2001; J2250; J2405; J2704; J3010; J3370; J3490; J7050

== ENCOUNTER 2018-08-05 08:48 | Outpatient (CLI) | payer MEDICARE, OTHER ==
[2018-08-05 10:40] LABS: #Eosinphils 0.1 thou/uL (0.0-0.7); #Monocytes 0.4 thou/uL (0.11-0.59); #Neutrophils 2.3 thou/uL (1.40-6.50); %Basophils 0.7 % (0.0-1.0); %Eosinophils 2.8 % (0.0-10.0); %Lymphocytes 26.2 % (21.0-51.0); %Monocytes 10.3 % (0.0-10.0); Hemoglobin 12.7 g/dL (12.0-16.0); Mean Corpuscular HGB CONC 32.7 g/dL (32.0-36.0); Mean Corpuscular Hemoglobin 28.1 pg (27.0-31.0); Mean Corpuscular Volume 85.7 fL (78.0-98.0); Mean Platelet Volume 10.6 fL (7.4-10.4); Platelet Count 142 thou/uL (130-400); RBC Distribution Width 13.8 % (11.5-14.5); Red Blood Cell (RBC) Count 4.54 mill/uL (4.20-5.40); White Blood Cell (WBC) Count 3.8 thou/uL (4.8-10.8)
[2018-08-05 10:42] LABS: Bilirubin Negative (Negative); Blood, Urine Negative (Negative); Clarity CLEAR (Clear); Glucose, Urine (Dipstick) Negative (Negative); Leukocyte Negative (Negative); Nitrite Negative (Negative); Protein, Urine (Dipstick) Negative (Neg-Trace); Specific Gravity, Urine 1.016 (1.002-1.036); Urobilinogen 0.2 mg/dL (0.2-1.0); pH, Urine 7.5 (5.0-9.0)
[2018-08-05 10:44] LABS: Prothrombin Time 13.3 SEC (12.0-14.7)
[2018-08-05 10:45] LABS: Bacteria/HPF None Seen HPF (None Seen); Hyaline Casts/LPF 0-3 HYALINE CAST LPF (0-3 Hyaline); Pathc Cast-AUWi Flag 0.29 (0-2.49); RBC/HPF 0-3 HPF (0-3); Squamous Epithelial 0-3 HPF (0-3); WBC/HPF 0-3 HPF (0-3)
[2018-08-05 10:51] LABS: Anion Gap 12 mmol/L (10-20); BUN (Urea Nitrogen) 23 mg/dL (9.8-20.1); Calc. Creatinine Clearance 0 mL/min (70-130); Calcium 9.4 mg/dL (7.8-10.44); Carbon Dioxide 28 mmol/L (23-31); Chloride 102 mmol/L (98-107); Estimated GFR-MDRD 88; Glucose 98 mg/dL (83-110); Potassium 3.7 mmol/L (3.5-5.1); Sodium 138 mmol/L (136-145)
== END 2018-08-05 08:49 | disposition home or self-care (01) ==
LOC: LABBT 08:48
PROVIDERS: ATTEND Orthopaedic Surgery
DX: Z01.818 Encounter for other preprocedural examination (principal); M16.12 Unilateral primary osteoarthritis, left hip
CPT/HCPCS: 80048; 81001; 85025; 85610; 87081; 87086; 93005; 93010

== ENCOUNTER 2018-08-11 09:18 | Outpatient (CLI) | payer MEDICARE, OTHER | END 2018-08-11 09:19 | disposition home or self-care (01) | LOC: LABBT 09:18 | PROVIDERS: ATTEND Orthopaedic Surgery | DX: Z01.812 Encounter for preprocedural laboratory examination (principal); M16.12 Unilateral primary osteoarthritis, left hip | CPT/HCPCS: 86850; 86900; 86901 ==

== ENCOUNTER 2019-08-04 09:51 | Outpatient (CLI) | payer MEDICARE, OTHER ==
--- NOTE | 2019-08-04 11:52 | MMO ---
Bilateral MAMMO Bilat Screen [facility]. CLINICAL HISTORY: Patient is 73 years old and is seen for screening. The patient has no family history of breast cancer. The patient has no personal history of cancer. The patient has a history of right needle biopsy at age 29 - benign. VIEWS: The views performed were: bilateral craniocaudal with tomosynthesis and bilateral mediolateral oblique with tomosynthesis. FILMS COMPARED: The present examination has been compared to prior imaging studies performed at [facility] on 08/10/2014, 09/06/2015, 01/13/2017 and 02/04/2018. This study has been interpreted with the assistance of computer-aided detection. MAMMOGRAM FINDINGS: There are scattered fibroglandular densities. There are benign appearing calcifications seen in both breasts. There are no suspicious masses, suspicious calcifications, or new areas of architectural distortion. IMPRESSION: THERE IS NO MAMMOGRAPHIC EVIDENCE OF MALIGNANCY. A ROUTINE FOLLOW-UP MAMMOGRAM IN 1 YEAR IS RECOMMENDED. THE RESULTS OF THIS EXAM WERE SENT TO THE PATIENT. ACR BI-RADS Category 2 - Benign finding MAMMOGRAPHY NOTE: 1. A negative mammogram report should not delay a biopsy if a dominant of clinically suspicious mass is present. 2. Approximately 10% to 15% of breast cancers are not detected by mammography. 3. Adenosis and dense breasts may obscure an underlying neoplasm. Reported by: JUDITH GUZMAN MD Electonically Signed: [id number]
== END 2019-08-04 09:52 | disposition home or self-care (01) ==
LOC: BICMAMMO 09:51
PROVIDERS: ATTEND Family Medicine
DX: Z12.31 Encounter for screening mammogram for malignant neoplasm of breast (principal); Z91.89 Other specified personal risk factors, not elsewhere classified
CPT/HCPCS: 77063; 77067

== ENCOUNTER 2019-08-10 14:12 | Outpatient (CLI) | payer MEDICARE, OTHER ==
--- NOTE | 2019-08-10 15:16 | RAD ---
LEFT FOOT 3 VIEWS: HISTORY: Foot pain and swelling. FINDINGS: Small enthesophyte from the plantar calcaneus. Mild degenerative changes at the talonavicular, inter tarsal joints and tarsometatarsal joints. Deformity of the 1st metatarsal with 2 screws consistent with old fracture and operative pinning. De generative changes of the 1st MTP joint. Deformity and DJD at the 2nd MTP joint. Flattening of the head of the 2nd metatarsal with hypertroph ic spurring and loss of joint space at this 2nd MTP joint. The 3rd, 4th, and 5th MTP joints are unremarkable. No acute fracture identified. IMPRESSION: There are degenerative and postoperative changes of the left foot as described. No acute fracture id entified. POS: TPC
== END 2019-08-10 14:13 | disposition home or self-care (01) ==
LOC: SCSRAD 14:12
PROVIDERS: ATTEND Nurse Practitioner Family
DX: M79.672 Pain in left foot (principal); M19.072 Primary osteoarthritis, left ankle and foot; Z98.890 Other specified postprocedural states

== ENCOUNTER 2019-10-18 09:22 | Outpatient (CLI) | payer MEDICARE, OTHER ==
--- NOTE | 2019-10-18 09:50 | RAD ---
EXAM: Toes right foot: 3 views INDICATIONS: Injury to right great toe 6 weeks ago. COMPARISON: None. FINDINGS: There is a transverse fracture through the mid portion of the distal phalanx of great toe. Subluxation at the PIP joint of the second toe with degenerative change. Degenerative change at the first and second MTP joints. Postoperative changes involving the distal first metatarsal with 2 metallic screws indicating prior b unionectomy. IMPRESSION: Fracture distal phalanx great toe. Other findings as detailed above.
== END 2019-10-18 09:23 | disposition home or self-care (01) ==
LOC: SCSRAD 09:22
PROVIDERS: ATTEND Family Medicine
DX: M79.674 Pain in right toe(s) (principal); S92.421A Displaced fracture of distal phalanx of right great toe, initial encounter for closed fracture

== ENCOUNTER 2019-12-08 10:51 | Outpatient (CLI) | payer MEDICARE, OTHER ==
--- NOTE | 2019-12-08 11:27 | ULT ---
US Renal Bilateral STANDARD: 12/08/2019 12:00 AM CLINICAL HISTORY: Recurrent urinary tract infections. STUDY: Renal ultrasound COMPARISON: None. FINDINGS: Right kidney: Echogenicity: Normal. Masses/cysts: None. Hydronephrosis: None. Calcifications: None. Length: 13.7 cm Left kidney: Echogenicity: Normal. Masses/cysts: None. Hydronephrosis: None. Calcifications: None. Length: 12.9 cm Limited visualization of the urinary bladder is unremarkable. There is significant post void residual . IMPRESSION: Unremarkable renal ultrasound
== END 2019-12-08 10:52 | disposition home or self-care (01) ==
LOC: SCSULT 10:51
PROVIDERS: ATTEND Urology
DX: Q62.8 Other congenital malformations of ureter (principal); Z87.440 Personal history of urinary (tract) infections
CPT/HCPCS: 76770

== ENCOUNTER 2021-01-23 14:33 | Outpatient (CLI) | payer MEDICARE, OTHER | END 2021-01-23 14:34 | disposition home or self-care (01) | LOC: BICMAMMO 14:33 | PROVIDERS: ATTEND Family Medicine | DX: Z12.31 Encounter for screening mammogram for malignant neoplasm of breast (principal); Z91.89 Other specified personal risk factors, not elsewhere classified | CPT/HCPCS: 77063; 77067 ==

== ENCOUNTER 2022-08-12 09:48 | Outpatient (CLI) | payer MEDICARE, OTHER | END 2022-08-12 09:49 | disposition home or self-care (01) | LOC: BICMAMMO 09:48 | PROVIDERS: ATTEND Family Medicine | DX: Z12.31 Encounter for screening mammogram for malignant neoplasm of breast (principal); Z91.89 Other specified personal risk factors, not elsewhere classified | CPT/HCPCS: 77063; 77067 ==

== ENCOUNTER 2022-10-06 09:02 | Outpatient (CLI) | payer MEDICARE, OTHER ==
[2022-10-06 10:44] LABS: #Eosinphils 0.1 10x3/uL (0.0-0.5); #Monocytes 0.4 10x3/uL (0.0-1.1); #Neutrophils 2.8 10x3/uL (1.5-8.4); %Basophils 0.9 % (0.0-2.0); %Eosinophils 2.4 % (0.0-6.0); %Lymphocytes 27.4 % (18.0-47.0); %Neutrophils 61.3 % (40.0-75.0); Hemoglobin 12.3 g/dL (12.0-15.5); Mean Corpuscular HGB CONC 32.4 g/dL (32.0-36.0); Mean Corpuscular Hemoglobin 28.1 pg (27.0-33.0); Mean Platelet Volume 12.3 fl (7.4-10.4); Platelet Count 140 10x3/uL (150-450); RBC Distribution Width 13.2 % (11.5-14.5); Red Blood Cell (RBC) Count 4.37 10x6/uL (3.90-5.03); White Blood Cell (WBC) Count 4.5 10x3/uL (3.5-10.5)
[2022-10-06 10:47] LABS: Prothrombin Time 10.9 sec (9.5-12.1)
[2022-10-06 10:52] LABS: Anion Gap 12 mmol/L (10-20); BUN (Urea Nitrogen) 25 mg/dL (9.8-20.1); Calc. Creatinine Clearance 0 mL/min (70-130); Calcium 9.3 mg/dL (7.8-10.44); Carbon Dioxide 28 mmol/L (23-31); Chloride 105 mmol/L (98-107); Estimated GFR 91; Glucose 70 mg/dL (83-110); Potassium 4.2 mmol/L (3.5-5.1); Sodium 141 mmol/L (136-145)
== END 2022-10-06 09:03 | disposition home or self-care (01) ==
LOC: LABBT 09:02
PROVIDERS: ATTEND Orthopaedic Surgery
DX: Z01.818 Encounter for other preprocedural examination (principal)
CPT/HCPCS: 80048; 85025; 85610; 87081; 93005; 93010

== ENCOUNTER 2022-10-07 05:34 | Observation (INO) | payer MEDICARE, OTHER ==
[2022-10-07] MEDS ORDERED: Vancomycin (BATCH) 1.5 GRAM/300 ML BAG ONE (06:05)
[2022-10-07] MEDS ORDERED: Tranexamic Acid 1,000 MG/10 ML VIAL ONE ×2 (06:05→09:36)
[2022-10-07] MEDS ORDERED: Sodium Chloride 0.9% 100 ML ONE ×2 (06:05→06:58)
[2022-10-07] MEDS ORDERED: Fentanyl 250 MCG/5 ML VIAL ONE (06:11)
[2022-10-07 06:48] LABS: SARS-CoV-2 NAA Rapid Test Not Detected (NotDetected)
[2022-10-07] MEDS ORDERED: Bupivacaine PF 0.5% 30 ML VIAL ONE ×2 (06:50→07:52)
[2022-10-07] MEDS ORDERED: CEFAZOLIN 2 GM VIAL ONE (06:58)
[2022-10-07] MEDS ORDERED: ePHEDrine 50 MG/ML VIAL ONE (07:00)
[2022-10-07] MEDS ORDERED: Ondansetron PF 4 MG/2 ML Vial ONE (07:00)
[2022-10-07] MEDS ORDERED: Glycopyrrolate 0.2 MG/ML 5 ML SYRINGE ONE (07:00)
[2022-10-07] MEDS ORDERED: Dexamethasone 20 MG/5 ML VIAL ONE (07:00)
[2022-10-07] MEDS ORDERED: PROPOFOL 200 MG/20 ML VIAL ONE (07:00)
[2022-10-07] MEDS ORDERED: Bupivacaine HCl 0.5%/Epinephrine 1:200,000/PF 30 ml Vial ONE (07:10)
[2022-10-07] MEDS ORDERED: Ondansetron PF 4 MG/2 ML Vial IVP PRN ×2 (07:28→08:45)
[2022-10-07] MEDS ORDERED: Acetaminophen 325 MG TAB PO PRN (07:28)
[2022-10-07] MEDS ORDERED: Promethazine HCl 25 MG/ML VIAL IM PRN ×3 (07:28→08:45)
[2022-10-07] MEDS ORDERED: HYDROcodone/Acetaminophen 10/325 mg Tablet PO PRN ×2 (07:28)
[2022-10-07] MEDS ORDERED: diphenhydrAMINE 25 MG CAP PO PRN (07:28)
[2022-10-07] MEDS ORDERED: Zolpidem Tartrate 5 MG TAB PO PRN ×2 (07:28→08:45)
[2022-10-07] MEDS ORDERED: Fluticasone Propionate Nasal Spray 16 gm Bottle NASAL PRN (07:31)
[2022-10-07] MEDS ORDERED: [UNRECOGNIZED DRUG - OTHER] INH PRN ×2 (07:31→07:54)
[2022-10-07] MEDS ORDERED: Lidocaine 1% (PF) 30 ML VIAL ONE (07:52)
[2022-10-07] MEDS ORDERED: Ondansetron HCl/PF 4 MG/2 ML Vial IVP PRN (08:10)
[2022-10-07] MEDS ORDERED: Ropivacaine 0.2% 550 ML 550 ML NERVE BLCK SCH (08:45)
[2022-10-07] MEDS ORDERED: traMADol HCl 50 MG TAB PO PRN ×2 (08:45)
[2022-10-07] MEDS ORDERED: Fentanyl 100 MCG/2 ML VIAL SLOW IVP PRN (08:46)
[2022-10-07] MEDS ORDERED: Fentanyl 100 MCG/2 ML VIAL ONE ×2 (09:02→09:32)
[2022-10-07] MEDS: Sodium Chloride 0.9% 1,000 ML IV SCH ×2 (10:16→17:30)
[2022-10-07] MEDS ORDERED: hydrALAZINE 20 MG/ML VIAL ONE (10:36)
[2022-10-07] MEDS ORDERED: hydrALAZINE 20 MG/ML VIAL SLOW IVP SCH (10:45)
[2022-10-07] MEDS ORDERED: Ketorolac Tromethamine 30 MG/ML VIAL ONE (12:28)
[2022-10-07] MEDS: Ketorolac Tromethamine 30 MG/ML VIAL IVP SCH ×3 (12:31→22:44)
[2022-10-07] MEDS: Lisinopril 10 MG TAB PO SCH ×2 (15:59→22:34)
[2022-10-07] MEDS: CEFAZOLIN 2 GM in Sodium Chloride 0.9% 100 ML IVPB SCH ×2 (16:01→22:44)
[2022-10-07 16:58] LABS: Bacteria/HPF None Seen HPF (None Seen); Bilirubin Negative (Negative); Blood, Urine Negative (Negative); Clarity Clear (Clear); Glucose, Urine (Dipstick) Normal (Negative); Ketone, Urine Negative (Negative); Leukocyte Negative Leu/uL (Negative); Nitrite Negative (Negative); Protein, Urine (Dipstick) Negative (Neg-Trace); RBC/HPF 0-3 HPF (0-3); Squamous Epithelial None Seen HPF (0-3); Urobilinogen Normal mg/dL (Less than 2); WBC/HPF None Seen HPF (0-3); pH, Urine 7.5 (5.0-9.0)
[2022-10-07] MEDS: HYDROcodone/Acetaminophen 10/325 mg Tablet PO PRN ×2 (17:29→22:43)
[2022-10-07 19:56] VITALS: BMI 32.5
[2022-10-07] MEDS: Aspirin 81 mg Enteric Coated Tablet PO SCH ×2 (20:05→22:34)
[2022-10-07] MEDS: Carvedilol 6.25 MG TAB PO SCH ×2 (20:05→22:34)
[2022-10-07] MEDS: Sertraline 100 MG TAB PO SCH (22:35)
[2022-10-08] MEDS: HYDROcodone/Acetaminophen 10/325 mg Tablet PO PRN ×5 (05:11→21:56)
[2022-10-08] MEDS: Levothyroxine Sodium 88 MCG TAB PO SCH (05:11)
[2022-10-08] MEDS: Sodium Chloride 0.9% 1,000 ML IV SCH ×2 (05:14→13:27)
[2022-10-08] MEDS: Ketorolac Tromethamine 30 MG/ML VIAL IVP SCH ×2 (05:14→13:30)
[2022-10-08 07:51] LABS: Mean Corpuscular HGB CONC 32.8 g/dL (32.0-36.0); Mean Corpuscular Hemoglobin 29.3 pg (27.0-31.0); Mean Corpuscular Volume 89.5 fl (78.0-98.0); Mean Platelet Volume 10.5 fL (7.4-10.4); Platelet Count 98 10x3/uL (130-400); RBC Distribution Width 12.2 % (11.5-14.5); Red Blood Cell (RBC) Count 3.41 mill/uL (4.20-5.40); White Blood Cell (WBC) Count 4.8 10x3/uL (4.8-10.8)
[2022-10-08] MEDS: Ferrous Gluconate 324 MG TAB PO SCH ×2 (08:47→17:56)
[2022-10-08] MEDS: Multivitamin W/ Minerals 1 TAB PO SCH (08:47)
[2022-10-08] MEDS: Senokot S 8.6-50 MG TAB PO SCH ×2 (08:48→21:54)
[2022-10-08] MEDS: Carvedilol 6.25 MG TAB PO SCH ×2 (08:48→21:55)
[2022-10-08] MEDS: Lisinopril 10 MG TAB PO SCH ×2 (08:49→21:54)
[2022-10-08] MEDS: Aspirin 81 mg Enteric Coated Tablet PO SCH (08:49)
[2022-10-08] MEDS: Sertraline 100 MG TAB PO SCH (21:56)
[2022-10-09] MEDS: HYDROcodone/Acetaminophen 10/325 mg Tablet PO PRN ×5 (03:30→20:57)
[2022-10-09] MEDS: Sodium Chloride 0.9% 1,000 ML IV SCH ×3 (04:56→16:19)
[2022-10-09 06:16] LABS: Hemoglobin 10.1 g/dL (12.0-16.0); Mean Corpuscular HGB CONC 32.3 g/dL (32.0-36.0); Mean Corpuscular Hemoglobin 28.9 pg (27.0-31.0); Mean Corpuscular Volume 89.6 fl (78.0-98.0); Mean Platelet Volume 10.5 fL (7.4-10.4); Platelet Count 98 10x3/uL (130-400); RBC Distribution Width 12.2 % (11.5-14.5); Red Blood Cell (RBC) Count 3.48 mill/uL (4.20-5.40); White Blood Cell (WBC) Count 4.2 10x3/uL (4.8-10.8)
[2022-10-09] MEDS: Ferrous Gluconate 324 MG TAB PO SCH ×2 (08:56→17:36)
[2022-10-09] MEDS: Carvedilol 6.25 MG TAB PO SCH ×2 (08:57→21:00)
[2022-10-09] MEDS: Lisinopril 10 MG TAB PO SCH ×2 (08:58→20:58)
[2022-10-09] MEDS: Multivitamin W/ Minerals 1 TAB PO SCH (08:58)
[2022-10-09] MEDS: Senokot S 8.6-50 MG TAB PO SCH ×2 (09:00→20:57)
[2022-10-09] MEDS: Levothyroxine Sodium 88 MCG TAB PO SCH (09:08)
[2022-10-09] MEDS: Sertraline 100 MG TAB PO SCH (21:00)
[2022-10-10] MEDS: HYDROcodone/Acetaminophen 10/325 mg Tablet PO PRN ×2 (04:14→09:06)
[2022-10-10 05:58] LABS: Hemoglobin 10.2 g/dL (12.0-16.0); Mean Corpuscular HGB CONC 32.9 g/dL (32.0-36.0); Mean Corpuscular Hemoglobin 29.5 pg (27.0-31.0); Mean Corpuscular Volume 89.8 fl (78.0-98.0); Mean Platelet Volume 10.3 fL (7.4-10.4); Platelet Count 96 10x3/uL (130-400); RBC Distribution Width 12.3 % (11.5-14.5); Red Blood Cell (RBC) Count 3.45 mill/uL (4.20-5.40)
[2022-10-10] MEDS: Levothyroxine Sodium 88 MCG TAB PO SCH (06:45)
[2022-10-10] MEDS: Ferrous Gluconate 324 MG TAB PO SCH (06:46)
[2022-10-10] MEDS: Sodium Chloride 0.9% 1,000 ML IV SCH (07:22)
[2022-10-10] MEDS: Carvedilol 6.25 MG TAB PO SCH (09:05)
[2022-10-10] MEDS: Lisinopril 10 MG TAB PO SCH (09:07)
[2022-10-10] MEDS: Senokot S 8.6-50 MG TAB PO SCH (09:07)
[2022-10-10] MEDS: Multivitamin W/ Minerals 1 TAB PO SCH (09:07)
[2022-10-10 12:11] VITALS: BP 142/76; TEMP 98
== END 2022-10-10 12:10 ==
LOC: SDC 05:34 → SJJU 13:36
PROVIDERS: ADMIT Orthopaedic Surgery; ATTEND Orthopaedic Surgery
PROC: 0SRD0J9 Replacement of Left Knee Joint with Synthetic Substitute, Cemented, Open Approach (ICD-10-PCS; principal; 2022-10-07)
DX: M17.12 Unilateral primary osteoarthritis, left knee (principal); D69.6 Thrombocytopenia, unspecified; R33.9 Retention of urine, unspecified; I48.91 Unspecified atrial fibrillation; I10 Essential (primary) hypertension; Z87.891 Personal history of nicotine dependence; Z79.890 Hormone replacement therapy; Z79.899 Other long term (current) drug therapy; Z91.030 Bee allergy status; Z91.048 Other nonmedicinal substance allergy status; Z96.642 Presence of left artificial hip joint; Z96.651 Presence of right artificial knee joint; Z20.822 Contact with and (suspected) exposure to COVID-19
CPT/HCPCS: 20985; 27447; 73560; 81001; 85027 ×3; 97110 ×4; 97116 ×3; 97530 ×2; 97535; A4306; C1713; C1776; J3370; U0002; 36415; 96365; 96372; 96375; 96376; G0378; J0360; J1100; J1650; J1885; J2001; J2405; J2704; J2795; J3010; J3490; J7050; S0020

== ENCOUNTER 2023-05-18 11:09 | Outpatient (CLI) | payer MEDICARE, OTHER ==
[2023-05-18 12:41] LABS: #Basophils 0.1 10x3/uL (0.0-0.2); #Eosinphils 0.1 10x3/uL (0.0-0.5); #Monocytes 0.5 10x3/uL (0.0-1.1); #Neutrophils 3.3 10x3/uL (1.5-8.4); %Basophils 0.9 % (0.0-2.0); %Eosinophils 2.2 % (0.0-6.0); %Lymphocytes 25.9 % (18.0-47.0); %Monocytes 8.4 % (0.0-10.0); %Neutrophils 62.2 % (40.0-75.0); Hemoglobin 12.5 g/dL (12.0-15.5); Mean Corpuscular HGB CONC 32.1 g/dL (32.0-36.0); Mean Corpuscular Volume 87.4 fl (81.6-98.3); Mean Platelet Volume 12.4 fl (7.4-10.4); Platelet Count 150 10x3/uL (150-450); RBC Distribution Width 13.2 % (11.5-14.5); Red Blood Cell (RBC) Count 4.46 10x6/uL (3.90-5.03); White Blood Cell (WBC) Count 5.4 10x3/uL (3.5-10.5)
[2023-05-18 13:10] LABS: Anion Gap 14 mmol/L (10-20); BUN (Urea Nitrogen) 26 mg/dL (9.8-20.1); Calc. Creatinine Clearance 0 mL/min (70-130); Calcium 9.3 mg/dL (7.8-10.44); Carbon Dioxide 25 mmol/L (23-31); Chloride 105 mmol/L (98-107); Estimated GFR 81; Glucose 87 mg/dL (83-110); Potassium 4.2 mmol/L (3.5-5.1); Sodium 140 mmol/L (136-145)
== END 2023-05-18 11:10 | disposition home or self-care (01) ==
LOC: LABBT 11:09
PROVIDERS: ATTEND Orthopaedic Surgery
DX: Z01.818 Encounter for other preprocedural examination (principal); M19.011 Primary osteoarthritis, right shoulder
CPT/HCPCS: 80048; 85025; 93005; 93010

== ENCOUNTER 2023-05-21 06:04 | Observation (INO) | payer MEDICARE, OTHER ==
[2023-05-18 12:00] VITALS: BMI 33.3
[2023-05-21] MEDS ORDERED: Sodium Chloride 0.9% 100 ML ONE ×2 (06:43→06:52)
[2023-05-21] MEDS ORDERED: Tranexamic Acid 1,000 MG/10 ML VIAL ONE (06:43)
[2023-05-21] MEDS ORDERED: Vancomycin (BATCH) 1.5 GRAM/300 ML BAG ONE (06:43)
[2023-05-21] MEDS ORDERED: CEFAZOLIN 2 GM VIAL ONE (06:52)
[2023-05-21] MEDS ORDERED: HYDROcodone/Acetaminophen 7.5/325 mg Tablet PO PRN ×2 (07:01)
[2023-05-21] MEDS ORDERED: fentaNYL 50 mcg/mL 1 mL Vial ONE ×5 (07:02→12:30)
[2023-05-21] MEDS ORDERED: Ropivacaine 0.5% HCl/PF (150 MG/30 ML VIAL) ONE (07:02)
[2023-05-21] MEDS ORDERED: Midazolam HCl 2 mg/2 ml Vial ONE (07:02)
[2023-05-21] MEDS ORDERED: Ropivacaine 0.2% HCl/PF 20 ML ONE (07:02)
[2023-05-21] MEDS ORDERED: [UNRECOGNIZED DRUG - OTHER] EA NARE PRN (07:21)
[2023-05-21] MEDS ORDERED: SUGAMMADEX SODIUM 200 MG/2 ML VIAL ONE ×2 (07:41→09:25)
[2023-05-21] MEDS ORDERED: Rocuronium Bromide 10 MG/ML (10ML VIAL) ONE (07:48)
[2023-05-21] MEDS ORDERED: Lidocaine 1% PF 5 ML VIAL ONE (07:48)
[2023-05-21] MEDS ORDERED: PROPOFOL 200 MG/20 ML VIAL ONE (07:48)
[2023-05-21] MEDS ORDERED: ePHEDrine Sulfate 50 MG/10 ML VIAL ONE (07:48)
[2023-05-21] MEDS ORDERED: Esmolol 100 MG/10 ML VIAL ONE (07:48)
[2023-05-21] MEDS ORDERED: Dexamethasone 20 MG/5 ML VIAL ONE (07:48)
[2023-05-21] MEDS ORDERED: Ondansetron PF 4 MG/2 ML Vial ONE (07:48)
[2023-05-21] MEDS ORDERED: fentaNYL 50 mcg/mL 1 mL Vial SLOW IVP PRN (07:50)
[2023-05-21] MEDS ORDERED: Ropivacaine 0.2% 550 ML 550 ML NERVE BLCK SCH (08:00)
[2023-05-21] MEDS ORDERED: Zolpidem Tartrate 5 MG TAB PO PRN (08:00)
[2023-05-21] MEDS ORDERED: Promethazine HCl 25 MG/ML VIAL IM PRN (08:00)
[2023-05-21] MEDS ORDERED: Ondansetron PF 4 MG/2 ML Vial IVP PRN (08:00)
[2023-05-21] MEDS ORDERED: HYDROcodone/Acetaminophen 10/325 mg Tablet PO PRN (08:00)
[2023-05-21] MEDS ORDERED: Estradiol 0.01% Vaginal Cream 42.5 gm Tube VAG SCH (09:00)
[2023-05-21] MEDS ORDERED: Fluticasone Propionate Nasal Spray 16 gm Bottle NASAL SCH (09:00)
[2023-05-21] MEDS ORDERED: Benzocaine/Menthol 1 LOZ LOZ PO PRN (15:43)
[2023-05-21] MEDS: CEFAZOLIN 2 GM in Sodium Chloride 0.9% 100 ML IVPB SCH ×2 (16:12→21:51)
[2023-05-21] MEDS: Ketorolac Tromethamine 30 MG/ML VIAL IVP SCH ×2 (16:13→18:51)
[2023-05-21] MEDS: Lisinopril 20 MG TAB PO SCH ×2 (16:13→20:21)
[2023-05-21] MEDS: Carvedilol 6.25 MG TAB PO SCH (16:14)
[2023-05-21] MEDS: HYDROcodone/Acetaminophen 10/325 mg Tablet PO PRN ×2 (17:18→21:53)
[2023-05-21] MEDS: Sodium Chloride 0.9% 1,000 ML IV SCH ×2 (20:07→23:29)
[2023-05-21] MEDS ORDERED: Sertraline 100 MG TAB PO SCH (21:00)
[2023-05-21] MEDS ORDERED: Amlodipine 5 MG TAB PO SCH (21:00)
[2023-05-22] MEDS: Ketorolac Tromethamine 30 MG/ML VIAL IVP SCH ×3 (00:26→11:17)
[2023-05-22] MEDS: HYDROcodone/Acetaminophen 10/325 mg Tablet PO PRN ×2 (04:31→08:15)
[2023-05-22] MEDS ORDERED: Levothyroxine Sodium 88 MCG TAB PO SCH (06:00)
[2023-05-22] MEDS: Carvedilol 6.25 MG TAB PO SCH (08:19)
[2023-05-22] MEDS ORDERED: Lisinopril 20 MG TAB PO SCH (09:00)
[2023-05-22] MEDS ORDERED: Senokot 8.6 MG TAB PO SCH (09:00)
[2023-05-22 12:36] VITALS: BP 123/66; TEMP 97.9
== END 2023-05-22 12:37 | disposition home or self-care (01) ==
LOC: SDC 06:04 → SURG B 09:55
PROVIDERS: ADMIT Orthopaedic Surgery; ATTEND Orthopaedic Surgery
PROC: 0RRJ0JZ Replacement of Right Shoulder Joint with Synthetic Substitute, Open Approach (ICD-10-PCS; principal; 2023-05-21)
PROC: 0LS30ZZ Reposition Right Upper Arm Tendon, Open Approach (ICD-10-PCS; 2023-05-21)
DX: M19.011 Primary osteoarthritis, right shoulder (principal); M19.012 Primary osteoarthritis, left shoulder; M75.21 Bicipital tendinitis, right shoulder; F32.A Depression, unspecified; I10 Essential (primary) hypertension; J30.2 Other seasonal allergic rhinitis; G47.00 Insomnia, unspecified; N95.1 Menopausal and female climacteric states; M48.061 Spinal stenosis, lumbar region without neurogenic claudication; N30.20 Other chronic cystitis without hematuria; M70.62 Trochanteric bursitis, left hip; M16.11 Unilateral primary osteoarthritis, right hip; Z98.890 Other specified postprocedural states; Z87.891 Personal history of nicotine dependence; Z91.038 Other insect allergy status; Z88.2 Allergy status to sulfonamides; Z91.048 Other nonmedicinal substance allergy status; Z79.899 Other long term (current) drug therapy
CPT/HCPCS: 23430; 23472; 97110; 97116; 97535; A4306; C1713 ×2; C1776 ×2; C1889; J3010; J3370; J1100; J1885; J2250; J2405; J2704; J2795; J3490

== ENCOUNTER 2023-11-02 11:51 | Outpatient (CLI) | payer MEDICARE, OTHER ==
[2023-11-02 13:25] LABS: #Eosinphils 0.1 10x3/uL (0.0-0.5); #Monocytes 0.3 10x3/uL (0.0-1.1); #Neutrophils 1.8 10x3/uL (1.5-8.4); %Basophils 0.9 % (0.0-2.0); %Eosinophils 2.7 % (0.0-6.0); %Lymphocytes 32.4 % (18.0-47.0); %Monocytes 8.2 % (0.0-10.0); %Neutrophils 55.8 % (40.0-75.0); Hematocrit 38.5 % (34.9-44.5); Hemoglobin 12.4 g/dL (12.0-15.5); Mean Corpuscular HGB CONC 32.2 g/dL (32.0-36.0); Mean Corpuscular Hemoglobin 27.7 pg (27.0-33.0); Mean Corpuscular Volume 85.9 fl (81.6-98.3); Mean Platelet Volume 12.6 fl (7.4-10.4); Platelet Count 141 10x3/uL (150-450); Red Blood Cell (RBC) Count 4.48 10x6/uL (3.90-5.03); White Blood Cell (WBC) Count 3.3 10x3/uL (3.5-10.5)
[2023-11-02 13:28] LABS: Anion Gap 11 mmol/L (10-20); BUN (Urea Nitrogen) 21 mg/dL (9.8-20.1); Calc. Creatinine Clearance 0 mL/min (70-130); Calcium 8.8 mg/dL (7.8-10.44); Carbon Dioxide 25 mmol/L (23-31); Chloride 106 mmol/L (98-107); Estimated GFR 91; Glucose 98 mg/dL (83-110); Potassium 4.2 mmol/L (3.5-5.1); Sodium 138 mmol/L (136-145)
== END 2023-11-02 11:52 | disposition home or self-care (01) ==
LOC: LABBT 11:51
PROVIDERS: ATTEND Orthopaedic Surgery
DX: Z01.818 Encounter for other preprocedural examination (principal); M19.012 Primary osteoarthritis, left shoulder
CPT/HCPCS: 80048; 85025; 93005; 93010

== ENCOUNTER 2023-11-05 05:45 | Inpatient (IN) | payer MEDICARE, OTHER ==
[2023-11-05] MEDS ORDERED: Sodium Chloride 0.9% 100 ML ONE ×2 (05:53→06:48)
[2023-11-05] MEDS ORDERED: Tranexamic Acid 1,000 MG/10 ML VIAL ONE (05:53)
[2023-11-05] MEDS ORDERED: Vancomycin (BATCH) 1.5 GM/300 ML BAG ONE (05:54)
[2023-11-05] MEDS ORDERED: fentaNYL PF 100 MCG/2 ML SYRINGE ONE (06:22)
[2023-11-05] MEDS ORDERED: Rocuronium Bromide 10 MG/ML (10ML VIAL) ONE (06:22)
[2023-11-05] MEDS ORDERED: Ondansetron PF 4 MG/2 ML Vial ONE (06:22)
[2023-11-05] MEDS ORDERED: Dexamethasone 20 MG/5 ML VIAL ONE (06:22)
[2023-11-05] MEDS ORDERED: PROPOFOL 20 ML ONE (06:22)
[2023-11-05] MEDS ORDERED: Lidocaine 1% PF 5 ML VIAL ONE (06:22)
[2023-11-05] MEDS ORDERED: Midazolam HCl 2 mg/2 ml Vial ONE (06:22)
[2023-11-05] MEDS ORDERED: Meperidine HCl/PF 25 MG/ML VIAL SLOW IVP PRN (06:45)
[2023-11-05] MEDS ORDERED: HYDROmorphone 2 MG/ML VIAL SLOW IVP PRN (06:45)
[2023-11-05] MEDS ORDERED: Promethazine HCl 25 MG/ML VIAL IM PRN ×2 (06:45→08:00)
[2023-11-05] MEDS ORDERED: Ondansetron HCl/PF 4 MG/2 ML Vial IVP PRN (06:45)
[2023-11-05] MEDS ORDERED: CEFAZOLIN 2 GM VIAL ONE (06:48)
[2023-11-05] MEDS ORDERED: Ropivacaine 0.5% HCl/PF (150 MG/30 ML VIAL) ONE (06:55)
[2023-11-05] MEDS ORDERED: Ropivacaine 0.2% HCl/PF 20 ML ONE (06:55)
[2023-11-05] MEDS ORDERED: HYDROcodone/Acetaminophen 7.5/325 mg Tablet PO PRN (07:35)
[2023-11-05] MEDS ORDERED: fentaNYL 50 mcg/mL 1 mL Vial SLOW IVP PRN (07:53)
[2023-11-05] MEDS ORDERED: Zolpidem Tartrate 5 MG TAB PO PRN (08:00)
[2023-11-05] MEDS ORDERED: Ropivacaine 0.2% 550 ML 550 ML NERVE BLCK SCH (08:00)
[2023-11-05] MEDS ORDERED: Ondansetron PF 4 MG/2 ML Vial IVP PRN (08:00)
[2023-11-05] MEDS ORDERED: traMADol HCl 50 MG TAB PO PRN ×2 (08:00)
[2023-11-05] MEDS ORDERED: ePHEDrine Sulfate 50 MG/10 ML VIAL ONE (08:10)
[2023-11-05] MEDS ORDERED: SUGAMMADEX SODIUM 200 MG/2 ML VIAL ONE (08:58)
[2023-11-05] MEDS ORDERED: fentaNYL 50 mcg/mL 1 mL Vial ONE (13:05)
[2023-11-05 14:11] VITALS: BMI 33.1
[2023-11-05] MEDS: Lisinopril 20 MG TAB PO SCH (16:06)
[2023-11-05] MEDS: Ketorolac Tromethamine 30 MG (1 mL) VIAL IVP SCH (16:07)
[2023-11-05] MEDS: Lactated Ringer's 1,000 ML IV SCH (16:07)
[2023-11-05] MEDS: Cholecalciferol 1,000 UNITS (25 MCG) TAB PO SCH (16:24)
[2023-11-05] MEDS: Fluticasone Propionate Nasal Spray 16 gm Bottle NASAL SCH (16:24)
[2023-11-05] MEDS: CEFAZOLIN 2 GM in Sodium Chloride 0.9% 100 ML IVPB SCH (16:25)
[2023-11-05] MEDS: Potassium Chloride 8 MEQ TAB PO SCH (16:29)
[2023-11-05] MEDS: HYDROcodone/Acetaminophen 10/325 mg Tablet PO PRN (21:22)
[2023-11-05] MEDS: Sertraline 100 MG TAB PO SCH (21:22)
[2023-11-05] MEDS: Amlodipine 5 MG TAB PO SCH (21:22)
[2023-11-06] MEDS: Calcium Carbonate 500 MG ChewTAB PO PRN (00:51)
[2023-11-06] MEDS: Levothyroxine Sodium 88 MCG TAB PO SCH (05:05)
[2023-11-06] MEDS: Aspirin 81 mg Enteric Coated Tablet PO SCH (08:33)
[2023-11-07] MEDS: HYDROcodone/Acetaminophen 10/325 mg Tablet PO PRN (17:00)
[2023-11-08] MEDS: Estradiol 0.01% Vaginal Cream 42.5 gm Tube VAG SCH (22:50)
[2023-11-09 12:06] VITALS: BP 93/51; TEMP 99.1
== END 2023-11-09 16:50 | DRG 483 ==
LOC: SDC 05:45 → SJJU 14:03 → OBSVTOIN 11-06 07:54
PROVIDERS: ADMIT Orthopaedic Surgery; ATTEND Orthopaedic Surgery
PROC: 0RRK0JZ Replacement of Left Shoulder Joint with Synthetic Substitute, Open Approach (ICD-10-PCS; principal; 2023-11-05)
PROC: 3E033XZ Introduction of Vasopressor into Peripheral Vein, Percutaneous Approach (ICD-10-PCS; 2023-11-05)
DX: M19.012 Primary osteoarthritis, left shoulder (principal); F32.A Depression, unspecified; I10 Essential (primary) hypertension; G47.00 Insomnia, unspecified; M48.061 Spinal stenosis, lumbar region without neurogenic claudication; M51.36 Other intervertebral disc degeneration, lumbar region; M16.12 Unilateral primary osteoarthritis, left hip; M70.72 Other bursitis of hip, left hip; Z96.611 Presence of right artificial shoulder joint; Z98.891 History of uterine scar from previous surgery
CPT/HCPCS: 96365; 96375; 96376; A4306; C1713; C1776; C1889; G0378; J1100; J1885; J2250; J2405; J2704; J2795; J3010; J3370; J3490; J7120